=== PATIENT | male | born 1985 | race Caucasian/White ===

== ENCOUNTER 2021-02-25 11:34 | Emergency (ER) | payer BC, SELFPAY ==
[2021-02-25 11:34] VITALS: BP 132/93; PULSE 88; RESP 16; TEMP 36.3; O2SAT 98; BMI 25.8
--- NOTE | 2021-02-25 12:04 | EX.ED.DYSGE1 ---
HPI History of Present Illness Chief Complaint: Ear Problem Informant: patient Onset/Context/Timing Onset: Days Context: Gradual Onset Timing: Continuous Current Severity: Moderate Maximum Severity: Moderate Narrative Narrative: Patient presents to the emergency department for right ear pain. He states for the past 3 days, he had a gradually increasing pain in the right ear. He states it hurts to chew. He denies fevers or chills. Is otherwise been in his normal state of health. He is concerned because he has been missing a soft earbud for about 2 months. He thinks it may be stuck in his ear. PFSH PFSH Home Medications amoxicillin-pot clavulanate 875 mg PO Q12H #20 tablet 02/25/21 [Rx Last Taken Unknown] Allergy/AdvReac Type Severity Reaction Status Date / Time No Known Allergies Allergy Verified 02/25/21 11:36 ROS ROS ED Constitutional Constitutional ED: Denies chills or fever(s) Eyes Eyes: Denies blurry vision or change in vision ENT ENT ED: Reports ear pain; Denies sore throat Cardiovascular Cardiovascular: Denies chest pain or palpitations Respiratory/Chest Respiratory/Chest: Denies cough, dyspnea or dyspnea on exertion Gastrointestinal Gastrointestinal: Denies abdominal pain, nausea or vomiting Genitourinary Genitourinary ED: Denies dysuria or urinary frequency Musculoskeletal Musculoskeletal: Denies arthralgias or myalgias Integumentary Denies rash Neurologic Neurologic: Denies headache(s) or paresthesias Psychiatric Psychiatric: Denies anxiety or depression Endocrine Endocrinology: Denies polydipsia or polyuria Allergic/Immunologic Allergic/Immunologic ED: Denies urticaria EXAM Physical Exam Const Vital Signs: 02/25/21 11:34 Temperature 97.3 F L Temperature Source Temporal Pulse Rate 88 Respiratory Rate 16 Blood Pressure 132/93 H Blood Pressure Mean 106 Pulse Ox 98 Oxygen Delivery Method Room Air Positive well nourished and well developed General Appearance ED: well developed HEENT Reports normocephalic, head/scalp atraumatic and moist mucous membranes HEENT Narrative: Patient's right ear TM is occluded by soft rubber. There is no mastoid tenderness. Left TM is normal. Eyes PERRL and EOMs intact bilaterally Neck no lymphadenopathy and supple General: Negative for tenderness Chest Wall inspection of chest normal Resp normal respiratory effort and clear to auscultation bilaterally Cardio regular rate, regular rhythm and no murmurs GI normal to inspection, nondistended, normoactive bowel sounds Palpation: Negative for tender, guarding or rebound tenderness present Back/Spine no CVA tenderness Cervical Spine: Negative for cervical spine tenderness Thoracic Spine / Upper Back: Negative for thoracic spinal tenderness Extremity normal to inspection General Extremety ED: Negative for tenderness Neuro oriented x3 and CN's II-XII intact bilaterally Neuro Narrative: No focal deficits appreciated. Sensorium / Orientation: alert Psych mental status grossly normal Skin no rashes or lesions noted, no wounds and skin turgor normal MDM MDM MDM Narrative Medical decision making narrative: Patient does appear to have obstructing foreign body within the canal. Using small alligator forceps I was able to gently retract it and it was only 1 piece. Examining the ear shows that the TM is intact. There is erythema and evidence of an otitis. I am going to place patient on Augmentin. He is comfortable with this plan of care and will be discharged home. Impression 1. Foreign body right ear with removal 2. Acute right otitis media Discharge Plan Triage Chief Complaint: Ear Problem ED Provider: Aba Young Dx/Rx/DC Orders Instructions: ED Foreign Body, Ear Canal (Removed), ED Otitis Media Antibiotic ... Prescriptions: New amoxicillin-pot clavulanate [amoxicillin-pot clavulanate] 875 MG tablet 875 mg PO Q12H Qty: 20 RF: 0 Primary Care Provider: NOT,DEFINED Referrals: NOT,DEFINED [Primary Care Provider] -
== END 2021-02-25 12:36 | disposition home or self-care (01) ==
PROVIDERS: Emergency Provider Emergency Medicine
DX: T16.1XXA Foreign body in right ear, initial encounter (principal); H66.91 Otitis media, unspecified, right ear; X58.XXXA Exposure to other specified factors, initial encounter; Y93.9 Activity, unspecified; Y92.9 Unspecified place or not applicable; Y99.9 Unspecified external cause status
CPT/HCPCS: 99282